=== PATIENT | male | born 1990 | race Caucasian/White ===

== ENCOUNTER 2023-03-02 23:56 | Emergency (ER) | payer OTHER ==
[~2023-03-02] VITALS: Ht 170.2 cm; Wt 63.5 kg
[2023-03-03 00:05] VITALS: BP 127/88; TEMP 98.4; O2SAT 98
== END 2023-03-03 01:00 | disposition home or self-care (01) ==
LOC: ER 23:59
DX: S01.81XA Laceration without foreign body of other part of head, initial encounter (principal); Y04.0XXA Assault by unarmed brawl or fight, initial encounter; Y93.89 Activity, other specified; Y92.89 Other specified places as the place of occurrence of the external cause; Y99.8 Other external cause status